=== PATIENT | female | born 1970 | race African-American/Black ===

== ENCOUNTER 2022-08-17 10:04 | Inpatient (IN) | payer SELFPAY ==
--- OUTSIDE RECORDS SUMMARY | 2022-08-17 10:06 | XMS REPORT | Continuity of Care Document ---
:1970 Author Organization [facility] t Address [address] [place] [address] Care Team Providers Name Role Phone Berry Kelley Attending Clinician Unavailable Physician, No Primary or Family Admitting Clinician Unavaila ble Payers Payer Name Policy Type Policy Number Effective Date Expiration Date S ource Problems This patient has no known problems. Allergies, Adverse Reactions, Alerts This patient has no known allergies or adverse reactions. Medications This patient has no known medications. Procedures This patient has no known procedures. Encounters Start End Encounter Admission Attending Care Care Encounter Source Date/Time Date/Time Type Type Clinicians Facility Department ID 2021-09-28 2021-09-28 Outpatient MIHIR Fuller RADI [id number] 09:38:00 09:38:00 Berry [facility] Results Test Description Test Time Test Comments Results Result [facility] e Comments - MRI UP JNT W/O 2021-09-28 CONT RT 11:52:00 [facility] 1970 Sex: F FAX: Berry Kelley MD [phone] Camps: PM St: REG Name: ANGELA LEHMAN : 1970 Age/S: 51/F [address] Unit #: [id number] Loc: [place] [address] Phys: Berry Kelley MD Acct: [id number] Dis Date: Status: REG CLI PHONE #: [phone] Exam Date: 09/28/2021 1100 FAX #: Reason: RIGHT SHOULDER PAIN EXAMS: CPT: [id number] MRI UP JNT W/[place] [id number] EXAM: MRI shoulder without contrast HISTORY: RIGHT SHOULDER PAIN COMPARISON: None available TECHNIQUE: Multiplanar multisequence MR imaging of the right shoulder was performed without the use of contrast. FINDINGS: BICEPS: The intra-articular portion of the biceps tendon is intact. LABRUM: Mild degenerative appearance of the superior labrum from the 11:00 to 1:00 position. ROTATOR CUFF TENDONS: Supraspinatus: Intact. Infraspinatus: Intact. Subscapularis: Intact. Teres minor: Intact. ACROMIO-OSSEOUS OUTLET: There is a type 1 acromion. Mild degenerative arthropathy of the AC joint is noted. Partially fused os acromiale is noted. No edema across the synchondrosis. MUSCLES: No signal abnormality in the muscles. Muscle bulk is preserved and symmetric. BONE: No fracture is identified. Subarticular cystic change identified at the glenoid and greater tuberosity. SOFT TISSUE: Within normal limits. No abnormality of the major neurovascular structures. IMPRESSION: Mild degenerative tear of the superior labrum, type II degenerative SLAP tear. No acute rotator cuff tear. Mild degenerative arthropathy of the AC joint. PAGE 1 Signed Report (CONTINUED) FAX: Berry Kelley MD [phone] Camps: PM St: REG Name: ANGELA LEHMAN : 1970 Age/S: 51/F [address] Unit #: [id number] Loc: [place] [address] Phys: Berry Kelley MD Acct: [id number] Dis Date: Status: REG CLI PHONE #: [phone] Exam Date: 09/28/2021 1100 FAX #: Reason: RIGHT SHOULDER PAIN EXAMS: CPT: [id number] [place] JNT W/[place] [id number] (Continued) Subcortical cystic change at the glenoid suggests overlying full-thickness chondral fissuring. Subcortical cystic change at the greater tuberosity suggests some degree of occult rotator cuff tendinopathy. at 1152 Reported and signed by: RAFAELA MAE M.D. CC: Berry Kelley MD Technologist: Nancy Anguiano, RT(R)() Transcribed Date/Time/By: 09/28/2021 ([id number]) :[email or web address] Orig Print D/T: S: 09/28/2021 (2924) PAGE 2 Signed Report
--- NOTE | 2022-08-17 10:26 | RAD REPORT ---
EXAM DESCRIPTION: RAD - Chest Single View - 08/17/2022 10:21 am CLINICAL HISTORY: preop COMPARISON: No comparisons FINDINGS: Lines: None. Lungs: No evidence of edema or pneumonia. Pleural: No significant pleural effusions or pneumothorax. Cardiac: The heart size is within normal limits. Mediastinum: Within normal limits. Bones: No acute fractures. Other: None IMPRESSION: No acute cardiopulmonary disease.
[2022-08-17] MEDS ORDERED: CLINDAMYCIN 600MG/D5W 50 ML IV ONE (10:36)
[2022-08-17] MEDS ORDERED: NA CHLORIDE 0.9% 1,000 ML ONE (10:36)
[2022-08-17] MEDS ORDERED: MORPHINE 2 MG/ML SYR ONE (10:36)
[2022-08-17 10:40] LABS: Hematocrit 38.1 % (36.0-45.0); Lymphocytes % 32.6 % (15.3-44.8); MCV 87.9 fL (80-100); RBC Red Blood Cell Count 4.33 M/uL (3.86-4.86)
[2022-08-17 10:58] LABS: Potassium 3.7 mmol/L (3.5-5.1); Troponin High Sensitivity 3.3 pg/mL (<58.9)
--- NOTE | 2022-08-17 12:31 | EDPHYS ---
Physician Documentation [facility] Name: Hoda Randhawa Age: 52 yrs Sex: Female : 1970 Arrival Date: 08/17/2022 Time: 10:05 Bed 7 Private MD: DELORIS RandhawaTim HPI: 08/17 10:18 This 52 yrs old Black Female presents to ER via Ambulatory with complaints of Boil - snw under arm. 10:18 The patient presents with an abscess of the right axilla. Description: The affected snw area is moderate sized, large, fluctuant, swollen. Onset: The symptoms/episode began/occurred suddenly, 4 day(s) ago, and became worse and became persistent. Possible cause(s): unknown. Associated signs and symptoms: The patient has no apparent associated signs or symptoms. Severity of symptoms: At their worst the symptoms were severe. The patient has not experienced similar symptoms in the past, but family has similar symptoms, son. The patient has not recently seen a physician. CERTIFIED FINANCIAL PLANNER: 10:11 LMP N/A - Post-menopause [facility] Historical: - Allergies: 10:11 No Known Allergies; [facility] - PMHx: 10:11 None; [facility] - PSHx: 10:11 None; [facility] - Immunization history:: Adult Immunizations up to date. - Social history:: Smoking status: Patient reports the use of cigarette tobacco products, smokes one pack cigarettes per day. ROS: 10:16 Constitutional: Negative for fever, chills, and weight loss, Eyes: Negative for injury, snw pain, redness, and discharge, ENT: Negative for injury, pain, and discharge, Neck: Negative for injury, pain, and swelling, Cardiovascular: Negative for chest pain, palpitations, and edema, Respiratory: Negative for shortness of breath, cough, wheezing, and pleuritic chest pain, Abdomen/GI: Negative for abdominal pain, nausea, vomiting, diarrhea, and constipation, Back: Negative for injury and pain, : Negative for injury, bleeding, discharge, and swelling, MS/Extremity: Negative for injury and deformity, Neuro: Negative for headache, weakness, numbness, tingling, and seizure, Psych: Negative for depression, anxiety, suicide ideation, homicidal ideation, and hallucinations. 10:16 Skin: Positive for "can't sleep, can't move, can't work with this thing under my arm" I didn't know what it was until my kids told me it is a hair bubble.. Exam: 10:15 Constitutional: This is a well developed, well nourished patient who is awake, alert, snw and in no acute distress. Head/Face: Normocephalic, atraumatic. Eyes: Pupils equal round and reactive to light, extra-ocular motions intact. Lids and lashes normal. Conjunctiva and sclera are non-icteric and not injected. Cornea within normal limits. Periorbital areas with no swelling, redness, or edema. ENT: Nares patent. No nasal discharge, no septal abnormalities noted. Tympanic membranes are normal and external auditory canals are clear. Oropharynx with no redness, swelling, or masses, exudates, or evidence of obstruction, uvula midline. Mucous membranes moist. Neck: Trachea midline, no thyromegaly or masses palpated, and no cervical lymphadenopathy. Supple, full range of motion without nuchal rigidity, or vertebral point tenderness. No Meningismus. Chest/axilla: Normal chest wall appearance and motion. Nontender with no deformity. No lesions are appreciated. Cardiovascular: Regular rate and rhythm with a normal S1 and S2. No gallops, murmurs, or rubs. Normal PMI, no JVD. No pulse deficits. Respiratory: Lungs have equal breath sounds bilaterally, clear to auscultation and percussion. No rales, rhonchi or wheezes noted. No increased work of breathing, no retractions or nasal flaring. Abdomen/GI: Soft, non-tender, with normal bowel sounds. No distension or tympany. No guarding or rebound. No evidence of tenderness throughout. Back: No spinal tenderness. No costovertebral tenderness. Full range of motion. MS/ Extremity: Pulses equal, no cyanosis. Neurovascular intact. Full, normal range of motion. Neuro: Awake and alert, GCS 15, oriented to person, place, time, and situation. Cranial nerves II-XII grossly intact. Motor strength 5/5 in all extremities. Sensory grossly intact. Cerebellar exam normal. Normal gait. Psych: Awake, alert, with orientation to person, place and time. Behavior, mood, and affect are within normal limits. 10:15 Skin: Appearance: normal except for affected area, abscess, that is moderate sized, that is large, of the right axilla, with fluctuance, with induration. Vital Signs: 10:08 BP 141 / 73; Pulse 80; Resp 16; Temp 98.4; Pulse Ox 99% ; Weight 74.84 kg; Height 5 ft. jh5 4 in. (162.56 cm); Pain 10/10; 10:51 BP 154 / 89; Pulse 74; Resp 15; Pulse Ox 97% ; Pain 10/10; jl7 13:53 BP 127 / 69; Pulse 80; Resp 19; Pulse Ox 95% ; jl7 16:08 BP 118 / 56; Pulse 84; Resp 15; Pulse Ox 97% ; Pain 7/10; jl7 10:08 Body Mass Index 28.32 (74.84 kg, 162.56 cm) jh5 MDM: 10:14 Patient medically screened. lisa 12:31 Differential diagnosis: abscess, cellulitis. Data reviewed: vital signs, nurses notes, snw lab test result(s), radiologic studies. Management of patient was discussed with the following: Hospitalist: Pt to be admitted to Hospitalist 2nd to no PCP assessment x 10 yrs. Accounting Analyst: Dr. Carlin, pt was seen in room #7 at 1200. I considered the following discharge prescriptions or medication management in the emergency department Medications were administered in the Emergency Department. See MAR. Historians other than the Patient: Daughter/Son: Son. Counseling: I had a detailed discussion with the patient and/or guardian regarding: the historical points, exam findings, and any diagnostic results supporting the discharge/admit diagnosis, the presence of at least one elevated blood pressure reading (>120/80) during this emergency department visit, lab results, radiology results, the need for further work-up and treatment in the hospital. Response to treatment: the patient's symptoms have mildly improved after treatment. 08/17 10:11 Order name: Basic Metabolic Panel snw 08/17 10:11 Order name: CBC with Diff snw 08/17 10:11 Order name: Troponin HS snw 08/17 10:46 Order name: CBC with Automated Diff; Complete Time: 11:03 EDMS 08/17 10:58 Order name: Basic Metabolic Panel; Complete Time: 11:03 EDMS 08/17 10:58 Order name: Troponin High Sensitivity; Complete Time: 11:03 EDMS 08/17 13:06 Order name: SARS RAPID em1 08/17 13:38 Order name: SARS-COV-2 Antigen Rapid; Complete Time: 13:38 EDMS 08/17 13:58 Order name: Protime (+INR); Complete Time: 13:58 EDMS 08/17 14:13 Order name: Phosphorus; Complete Time: 14:25 EDMS 08/17 14:13 Order name: Creatine Phosphokinase; Complete Time: 14:25 EDMS 08/17 14:13 Order name: Lipid Profile; Complete Time: 14:25 EDMS 08/17 14:13 Order name: T4 Free; Complete Time: 14:25 EDMS 08/17 14:13 Order name: Magnesium; Complete Time: 14:25 EDMS 08/17 10:11 Order name: XRAY Chest (1 view) snw 08/17 10:11 Order name: EKG; Complete Time: 10:12 w 08/17 10:11 Order name: Cardiac monitoring; Complete Time: 10:46 w 08/17 10:11 Order name: EKG - Nurse/Tech; Complete Time: 10:46 w 08/17 10:11 Order name: IV Saline Lock; Complete Time: 10:34 w 08/17 10:11 Order name: Labs collected and sent; Complete Time: 10:34 w 08/17 10:11 Order name: O2 Per Protocol; Complete Time: 10:18 w 08/17 10:11 Order name: O2 Sat Monitoring; Complete Time: 10:18 w 08/17 10:11 Order name: NPO; Complete Time: 10:26 w 08/17 10:27 Order name: RAD; Complete Time: 10:38 EDMS 08/17 14:13 Order name: Thyroid Stimulating Hormone; Complete Time: 14:25 EDMS 08/17 14:38 Order name: Hemoglobin A1c; Complete Time: 14:39 EDMS 08/17 11:04 Order name: Consult Surgery-Tristian Carlin MD (GENERAL SURGERY) snw EC:44 Rate is 77 beats/min. Rhythm is regular. QRS [place] is Normal. VT interval is normal. QRS snw interval is normal. QT interval is normal. Clinical impression: Normal ECG. Administered Medications: 10:42 Drug: morphine 2 mg Route: IVP; Infused Over: 4 mins; Site: left antecubital; jl7 11:00 Follow up: Response: No adverse reaction; Pain is unchanged, physician notified jl7 10:43 Drug: NS 0.9% 1000 ml Route: IV; Rate: 125 ml/hr; Site: left antecubital; jl7 13:49 Follow up: IV Status: Infusion continued upon admission jl7 10:46 Drug: Clindamycin 600 mg Route: IVPB; Infused Over: 30 mins; Site: left antecubital; jl7 11:15 Follow up: Response: No adverse reaction; IV Status: Completed infusion jl7 Disposition Summary: 08/17/22 12:31 Hospitalization Ordered Hospitalization Status: Observation snw Provider: Roma Bueno snw Location: Telemetry/MedSurg (observation) snw Condition: Stable snw Problem: new snw Symptoms: are unchanged snw Bed/Room Type: Standard snw Room Assignment: [facility](08/17/22 15:01) em1 Diagnosis - Cutaneous abscess of right axilla snw Forms: - Medication Reconciliation Form snw - SBAR form snw Signatures: Dispatcher [employer] EDTim Pruitt MD MD cha Waters, Shelly, CAP MACHINE OPERATOR-C CAP MACHINE OPERATOR-Ezekiel Tello em1 Guadalupe Charles RN RN jl7 Margarita Morton RN RN jh5 Corrections: (The following items were deleted from the chart) 15: 12:31 snw em1
--- NOTE | 2022-08-17 12:31 | ER ---
Nurse's Notes [facility] [place] [place] [facility] Name: Hoda Randhawa Age: 52 yrs Sex: Female : 1970 Arrival Date: 08/17/2022 Time: 10:05 Bed 7 Private MD: Diagnosis: Cutaneous abscess of right axilla Presentation: 08/17 10:08 Chief complaint: Patient states: boils under the arm since . Coronavirus [facility] screen: Vaccine status: Patient reports being unvaccinated. Client denies travel out of the [place] in the last 14 days. Ebola Screen: Patient negative for fever greater than or equal to 101.5 degrees Fahrenheit, and additional compatible Ebola Virus Disease symptoms Patient denies exposure to infectious person. Patient denies travel to an Ebola-affected area in the 21 days before illness onset. Initial Sepsis Screen: Does the patient meet any 2 criteria? No. Patient's initial sepsis screen is negative. Does the patient have a suspected source of infection? No. Patient's initial sepsis screen is negative. Risk Assessment: Do you want to hurt yourself or someone else? Patient reports no desire to harm self or others. Onset of symptoms was August 10, 2022. 10:08 Method Of Arrival: Ambulatory [facility] 10:08 Acuity: ANNABELLA 3 5 Triage Assessment: 10:11 General: Appears uncomfortable, well groomed, well developed, Behavior is calm, jh5 cooperative, appropriate for age. Pain: Complains of pain in under right arm. 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 - Social history:: Smoking status: Patient reports the use of cigarette tobacco products, smokes one pack cigarettes per day. Screenin:[facility] ED Fall Risk Assessment (Adult) History of falling in the last 3 months, jl7 including since admission No falls in past 3 months (0 pts) Confusion or Disorientation No (0 pts) Intoxicated or Sedated No (0 pts) Impaired Gait No (0 pts) Mobility Assist Device Used No (0 pt) Altered Elimination No (0 pt) Score/Fall Risk Level 0 - 2 = Low Risk Oriented to surroundings, Maintained a safe environment. Abuse screen: Denies threats or abuse. Denies injuries from another. Nutritional screening: No deficits noted. Tuberculosis screening: No symptoms or risk factors identified. Assessment: 10:30 General: Appears in no apparent distress. uncomfortable, Behavior is calm, cooperative, jl7 appropriate for age. Pain: Complains of pain in right axilla Pain currently is 10 out of 10 on a pain scale. Neuro: Level of Consciousness is awake, alert, obeys commands, Oriented to person, place, time, situation. Cardiovascular: Patient's skin is warm and dry. Respiratory: Airway is patent Respiratory effort is even, unlabored, Respiratory pattern is regular, symmetrical. Derm: Skin is pink, warm \T\ dry. Abscess located on right axilla is half dollar sized, has no drainage, is raised. 11:30 Reassessment: Patient appears in no apparent distress at this time. No changes from jl7 previously documented assessment. Patient and/or family updated on plan of care and expected duration. Pain level reassessed. Patient is alert, oriented x 3, equal unlabored respirations, skin warm/dry/pink. 12:45 Reassessment: Dr. Carlin told pt he will take pt to OR in the morning. jl7 14:00 Reassessment: Patient appears in no apparent distress at this time. No changes from jl7 previously documented assessment. Patient and/or family updated on plan of care and expected duration. Pain level reassessed. Patient is alert, oriented x 3, equal unlabored respirations, skin warm/dry/pink. 15:00 Reassessment: Patient appears in no apparent distress at this time. No changes from jl7 previously documented assessment. Patient and/or family updated on plan of care and expected duration. Pain level reassessed. Patient is alert, oriented x 3, equal unlabored respirations, skin warm/dry/pink. Vital Signs: 10:08 BP 141 / 73; Pulse 80; Resp 16; Temp 98.4; Pulse Ox 99% ; Weight 74.84 kg; Height 5 ft. jh5 4 in. (162.56 cm); Pain 10/10; 10:51 BP 154 / 89; Pulse 74; Resp 15; Pulse Ox 97% ; Pain 10/10; jl7 13:53 BP 127 / 69; Pulse 80; Resp 19; Pulse Ox 95% ; jl7 16:08 BP 118 / 56; Pulse 84; Resp 15; Pulse Ox 97% ; Pain 7/10; jl7 10:08 Body Mass Index 28.32 (74.84 kg, 162.56 cm) [facility] ED Course: 10:05 Patient arrived in ED. am2 10:05 Yelena Marquez FNP-C is [facility]. snw 10:05 Tim Randhawa MD is Attending Physician. snw 10:11 Triage completed. 5 10:11 Arm band placed on right wrist. 5 10:15 Guadalupe Charles RN is Primary Nurse. jl7 10:30 Patient has correct armband on for positive identification. Placed in gown. Bed in low jl7 position. Call light in reach. Side rails up X2. Client placed on continuous cardiac and pulse oximetry monitoring. NIBP monitoring applied. Warm blanket given. 10:33 Initial lab(s) drawn, by nh, sent to lab. Inserted saline lock: 20 gauge in left vg1 antecubital area, using aseptic technique. Blood collected. 10:54 Surgical consent Placed at bedside, awaiting surgeon visit. jl7 10:54 EKG done, by ED staff, reviewed by Yelena OSWALD. jl7 12:29 Roma Bueno MD is Hospitalizing Provider. snw 16:01 SARS RAPID Sent. jl7 16:36 No provider procedures requiring assistance completed. Patient admitted, IV remains in vg1 place. Administered Medications: 10:42 Drug: morphine 2 mg Route: IVP; Infused Over: 4 mins; Site: left antecubital; jl7 11:00 Follow up: Response: No adverse reaction; Pain is unchanged, physician notified jl7 10:43 Drug: NS 0.9% 1000 ml Route: IV; Rate: 125 ml/hr; Site: left antecubital; jl7 13:49 Follow up: IV Status: Infusion continued upon admission jl7 10:46 Drug: Clindamycin 600 mg Route: IVPB; Infused Over: 30 mins; Site: left antecubital; jl7 11:15 Follow up: Response: No adverse reaction; IV Status: Completed infusion jl7 Medication: 16:36 VIS not applicable for this client. vg1 Outcome: 12:31 Decision to Hospitalize by Provider. snw 16:36 Admitted to Med/surg accompanied by tech, via wheelchair, room 212, with chart. vg1 16:36 Condition: good 16:36 Instructed on the need for admit. 16:36 Patient left the ED. vg1 Signatures: Yelena Marquez, HIGHWAY PAINTER-C HIGHWAY PAINTER-Csnw Guadalupe Charles RN RN jl7 Paula Vazquez am2 Mary Mckeon, RN RN vg1 Margarita Morton RN RN jh5 Corrections: (The following items were deleted from the chart) 10:12 10:08 Pulse 80bpm; Resp 16bpm; Pulse Ox 99%; Temp 98.4F; 74.84 kg; Height 5 ft. 4 in.; jh5 BMI: 28.3; Pain 04/04; jh5
[2022-08-17] MEDS ORDERED: ACETAMINOPHEN 325 MG TABLET PO PRN (12:53)
[2022-08-17] MEDS ORDERED: ONDANSETRON 4 MG/2 ML VIAL IV PRN (12:56)
--- NOTE | 2022-08-17 13:01 | P.HP ---
Certification for Inpatient Patient admitted to: Observation With expected LOS: <2 Midnights Patient will require the following post-hospital care: None Practitioner: I am a practitioner with admitting privileges, knowledge of patient current condition, hospital course, and medical plan of care. Services: Services provided to patient in accordance with Admission requirements found in Title 42 Section 412.3 of the Code of Federal Regulations Patient History Date of Service: 08/17/22 Reason for admission: Right axilla abscess History of Present Illness: Patient is a 52-year-old female with a past medical history significant for nicotine dependence, alcohol abuse who presents with complaint of abscess under the right axilla onset 4 days ago. Patient initially noted an induration\boil under the right axilla. Patient reported that over time, she started noticing increased pain\swelling of right axilla abscess. Patient rated pain as 10/10 in severity and described pain as throbbing in quality. Patient reported associated signs and symptoms of generalized body pains. Patient denies any other signs or symptoms. Symptoms are aggravated or relieved by nothing. Patient decided to present to the hospital due to worsening symptoms. Allergies No Known Allergies Allergy (Verified 08/17/22 13:54) - Past Medical/Surgical History -: Nicotine dependence -: Alcohol abuse. Past Surgical History: Reviewed- Non-Contributory - Family History Family History: Reviewed- Non-Contributory - Social History Smoking Status: Current every day smoker Counseled patient to stop smoking for: less than 10 minutes Smoking therapy provided: Yes Patient receptive to therapy: Yes Alcohol use: Yes CD- Drugs: No Caffeine use: Yes Place of Residence: Home Review of Systems General: Other (Generalized body pains.) Eyes: Unremarkable ENT: Unremarkable Respiratory: Unremarkable Cardiovascular: Unremarkable Gastrointestinal: Unremarkable Genitourinary: Unremarkable Musculoskeletal: Unremarkable Integumentary: Other (Right axilla abscess) Neurological: Unremarkable Lymphatics: Unremarkable Physical Examination - Physical Exam General: Alert, In no apparent distress, Oriented x3, Cooperative HEENT: Atraumatic, PERRLA, Mucous membr. moist/pink, EOMI, Sclerae nonicteric Neck: Supple, 2+ carotid pulse no bruit, No LAD, Without JVD or thyroid abnormality Respiratory: Clear to auscultation bilaterally, Normal air movement Cardiovascular: No edema, Regular rate/rhythm, Normal S1 S2 Capillary refill: <2 Seconds Gastrointestinal: Normal bowel sounds, Non-distended, No tenderness Musculoskeletal: No clubbing, No swelling, No tenderness Integumentary: No rashes, No breakdown, Tenderness/swelling Neurological: Normal speech, Normal tone, Normal affect Lymphatics: No axilla or inguinal lymphadenopathy - Studies Laboratory Data (last 24 hrs) 08/17/22 10:30: WBC 12.30 H, Hgb 12.7, Hct 38.1, Plt Count 290 08/17/22 10:30: Sodium 140, Potassium 3.7, BUN 7, Creatinine 0.68, Glucose 109 H Assessment and Plan - Plan --Hidradenitis of right axilla. Patient started on antibiotics. Surgeon consulted. Plan surgery for a.m. We will keep patient n.p.o. after midnight. Will await further recommendation from surgeon. --Acute pain. We will manage pain with current pain medication regimen. --Nicotine dependence. Patient counseled on tobacco cessation. Refuses nicotine patch. --Alcohol abuse. Patient denies withdrawal symptoms when she does not drink. Alcohol withdrawal assessment protocol. --Leukocytosis. Likely secondary to hydradenitis. Blood cultures pending. Continue antibiotics. --- DVT prophylaxis with Lovenox subQ. Discharge Plan: Home Plan to discharge in: 48 Hours - Advance Directives Does patient have a Living Will: No Does patient have a Durable POA for Healthcare: No - Code Status/Comfort Care Code Status Assessed: Yes Physician Review: Patient Assessed, Agree with Above Assessment and Plan Critical Care: No
--- NOTE | 2022-08-17 13:02 | P.HP ---
Patient History Date of Service: 08/17/22 Physical Examination - Studies Laboratory Data (last 24 hrs) 08/17/22 10:30: WBC 12.30 H, Hgb 12.7, Hct 38.1, Plt Count 290 08/17/22 10:30: Sodium 140, Potassium 3.7, BUN 7, Creatinine 0.68, Glucose 109 H Assessment and Plan - Advance Directives Does patient have a Living Will: No Does patient have a Durable POA for Healthcare: No
[2022-08-17 13:38] LABS: SARS-CoV-2 Antigen Rapid Res Negative (Negative)
[2022-08-17 13:58] LABS: Protime INR 1.13
[2022-08-17] MEDS ORDERED: CLINDAMYCIN 600MG/D5W 50 ML IV SCH ×3 (14:00→18:00)
[2022-08-17] MEDS: HYDROCODONE/APAP 10/325 TAB PO PRN ×2 (14:00→20:00)
[2022-08-17] MEDS ORDERED: HYDROCODONE/APAP 10/325 TAB ONE (14:06)
[2022-08-17 14:13] LABS: Magnesium 1.9 mg/dL (1.6-2.4); Phosphorus 3.9 mg/dL (2.5-4.9); Thyroid Stimulating Hormone 1.04 uIU/mL (0.358-3.740)
[2022-08-17] MEDS: ENOXAPARIN 40 MG/0.4 ML SQ SCH (16:57)
[2022-08-17] MEDS: ASPIRIN 81 MG CHEWABLE TABLET PO SCH (16:57)
[2022-08-17 17:16] VITALS: BMI 28.3
[2022-08-17] MEDS ORDERED: INFLUENZA VACCINE (for 6+ mo) 0.5 ML DOSE IMVAC ONE (18:00)
[2022-08-17] MEDS: CLINDAMYCIN 600MG/D5W 50 ML IV SCH ×2 (18:19→23:25)
--- NOTE | 2022-08-17 18:26 | CON ---
Date of Consultation: 08/17/2022 Brief History Of Present Illness: The patient is a 52-year-old female with a past medical history of nicotine dependence and alcohol abuse, who presents with complaints of worsening pain and swelling i n the right axillary region occurring for approximately 6-7 days. She states that it came to ahead a nd is ultimately large, tender, red, no drainage, but significant pain associated with the area where it has now became tender and the pain is 10/10 in severity. She has not shaved in the area and noti kim this became out of seemingly nowhere and is not aware of any inciting events. Past Medical History: Significant for nicotine dependence, alcohol abuse. Allergies: NO KNOWN DRUG ALLERGIES. Medications: None. She states she has not seen a physician in approximately 7-10 years. Social History: She is a current everyday smoker. She drinks alcohol recreationally. Denies recrea tional drug use. Review of Systems: Ten-point review of systems other than HPI, she has body pains. Physical Examination: General: At the time of my examination; she is awake, alert, oriented. Psychiatric: Appropriate, conversive. HEENT: She is normocephalic. Sclerae anicteric. Mucous membranes are moist. Oropharynx is clear. Neck: Supple without JVD. Chest: Expansion and excursion. Cardiovascular: Regular rate and rhythm. Pulmonary: Clear to auscultation bilaterally. Abdomen: Soft, nontender. Extremities: No clubbing, cyanosis, or edema. Skin: Has a large right axillary abscess, which appears multifocal consistent with possible hidraden itis suppurativa. It is tender. There is fluctuance. It is approximately 3 cm in size with some st reaking and redness. There is no extension beyond the region. Laboratory Data: Reveals a white blood cell count of 12.3, hemoglobin is 12.7, hematocrit 38.1, plat elet count is 290. Her PT 12.4, INR 1.1. Sodium is 140, potassium 3.7, chloride 98, carbon dioxide 25, BUN 7, creatinine 0.6, glucose 109, calcium is 9.4. Troponin was 3.3. She had a chest x-ray per formed as well, which was officially read as no acute cardiopulmonary disease. Assessment And Plan: This is a 52-year-old female, who has had no contact with medical doctor, who w as admitted to the hospital with a right axillary abscess, possible hidradenitis suppurativa. 1.IV fluid hydration. 2.Antibiotic coverage. 3.I have explained risks, benefits, and alternatives of incision, drainage and debridement of right axillary abscess, possible hidradenitis suppurativa including, but not limited to bleeding, infection , damage to surrounding tissues, need for further operation and procedures, injury to nerves, dysfunc tion of arm, paresthesias, numbness in the arm. The patient agrees to proceed indicated. Thank you for this interesting consult. DARA/GOPAL Voice ID: [id number] Report ID: [id number]
[2022-08-17 23:57] LABS: Specific Gravity 1.022 (1.005-1.030); Urine Bilirubin NEGATIVE (Negative); Urine Blood Negative (Negative); Urine Clarity Clear (Clear); Urine Color Light-Yellow (Yellow); Urine Glucose NEGATIVE (Negative); Urine Protein NEGATIVE (Negative); Urine Urobilinogen Normal (Normal); Urine pH 5.5 (5.0-7.0)
[2022-08-18] MEDS ORDERED: FENTANYL CITR 100 MCG/2 ML IV ONE (02:52)
[2022-08-18 03:16] LABS: Absolute Lymphocytes (CBC) 4.9 K/uL (0.7-4.9); Hematocrit 34.9 % (36.0-45.0); Lymphocytes % 41.9 % (15.3-44.8); MCV 89.5 fL (80-100); MPV 9.4 fL (7.6-11.3)
[2022-08-18] MEDS: CLINDAMYCIN 600MG/D5W 50 ML IV SCH ×3 (06:19→17:08)
[2022-08-18] MEDS: ASPIRIN 81 MG CHEWABLE TABLET PO SCH (07:31)
[2022-08-18] MEDS: ENOXAPARIN 40 MG/0.4 ML SQ SCH (07:32)
[2022-08-18] MEDS ORDERED: BUPIVACAINE 0.5% PF 10 ML VIAL ONE (10:25)
[2022-08-18] MEDS ORDERED: Ringers Lactate 1,000 ML IV ONE (10:49)
[2022-08-18] MEDS ORDERED: FENTANYL CITR 100 MCG/2 ML ONE (11:14)
[2022-08-18] MEDS ORDERED: MIDAZOLAM HCL 2 MG/2 ML INJ ONE (11:14)
[2022-08-18] MEDS ORDERED: propofoL 200 MG/20 ML VIAL IV ONE (11:14)
[2022-08-18] MEDS ORDERED: LIDOCAINE 2% MPF 5 ML VIAL ONE (11:15)
[2022-08-18] MEDS ORDERED: ONDANSETRON 4 MG/2 ML VIAL ONE (11:16)
[2022-08-18] MEDS ORDERED: dexAMETHasone 10 MG/ML VIAL ONE (11:50)
--- NOTE | 2022-08-18 12:16 | P.OP ---
Preoperative diagnosis: RIGHT Axillary Hidradenitis Suppuritiva Postoperative diagnosis: RIGHT Axillary Hidradenitis Suppuritiva Primary procedure: Excisional debridement of RIGHT Axillary Hidradenitis Suppuritiva Anesthesia: GETA + Local Estimated blood loss: <10cc Specimen: cultures, debridement tissue Findings: RIGHT Axillary Hidradenitis Suppuritiva + abscess Complications: None Transferred to: Recovery Room Condition: Good
[2022-08-18] MEDS: HYDROMORPHONE HCL 2 MG/ML inj ONE ×4 (12:25→12:39)
[2022-08-18] MEDS ORDERED: KETOROLAC 30 MG/ML INJ ONE (12:38)
[2022-08-18] MEDS ORDERED: HYDROMORPHONE HCL 1 MG/ML INJ ONE (12:48)
[2022-08-18] MEDS: HYDROCODONE/APAP 10/325 TAB PO PRN ×2 (13:30→20:04)
--- NOTE | 2022-08-18 15:37 | OP ---
Date of Procedure: 08/18/2022 Surgeon: Tristian Cariln MD, Preoperative Diagnosis: Right axillary hidradenitis suppurativa. Postoperative Diagnosis: Right axillary hidradenitis suppurativa. Procedure Performed: Excisional debridement of right axilla hidradenitis suppurativa. Anesthesia: General endotracheal plus local with 0.25% Marcaine. Estimated Blood Loss: Less than 10 cc. Specimen: Cultures sent, both aerobic and anaerobic speciation and debridement tissue. Findings: Right axilla hidradenitis suppurativa with abscess extending for approximately 3.5 cm x 4. 5 cm down to the muscle including fascia. Complications: None. Disposition: The patient was transferred to the recovery room in good condition. Procedure In Detail: After informed consent was obtained, the patient was brought into the operating room, prepped and draped in the usual sterile fashion after adequate anesthesia was achieved. I mad e a curvilinear incision around an obvious area of axillary hidradenitis at the anterior axillary cre ase down through the subcutaneous tissues with a 15 blade and immediately encountered abscess materia l. I cultured it for both aerobic and speciation, circumferentially removed the debridement tissue a s described above for the measurements above down to the muscle and fascia. Part of the fascia was r emoved, but the muscle remained intact of the pectoralis major muscle. This tissue was all debrided until only good viable tissue remained. The area was copiously irrigated and hemostasis was achieved with minimal electrocautery. The wound was then packed with a sterile dressing and the patient had a dry dressing placed on top. The patient tolerated the procedure well without evidence of complicat ion and transferred to PACU in good condition. All counts were correct at the end of the case. TK/MODL Voice ID: [id number] Report ID: [id number]
--- NOTE | 2022-08-18 16:32 | EKG ---
Test Date: 2022-08-17 Test Time: 10:38:02 Wardrobe Specialist: NIRMAL MEASUREMENT RESULTS: Intervals: Rate: 77 TN: 144 QRSD: 86 QT: 374 QTc: 423 [place]: P: 3 TN: 144 QRS: 33 T: 44 INTERPRETIVE STATEMENTS: Normal sinus rhythm Normal ECG No previous ECG available for comparison Electronically Signed On 08-18-22 16:29:46 [employer]LL[employer] INSPECTOR by Vj Ferguson
[2022-08-18 21:06] VITALS: O2SAT 98
--- NOTE | 2022-08-19 | P.PN ---
Subjective Date of Service: 08/18/22 Subjective: No new changes, No C/O voiced, Improving Review of Systems 10-point ROS is otherwise unremarkable Physical Examination - Vital Signs Temperature: 98.7 F Blood Pressure: 115/53 Pulse: 89 Respirations: 18 Pulse Ox (%): 94 - Physical Exam General: Alert, In no apparent distress HEENT: Atraumatic, PERRLA, EOMI Neck: Supple, JVD not distended Respiratory: Clear to auscultation bilaterally, Normal air movement Cardiovascular: Regular rate/rhythm, Normal S1 S2 Gastrointestinal: Normal bowel sounds, No tenderness Musculoskeletal: No tenderness Integumentary: No rashes Neurological: Normal speech, Normal tone, Normal affect Lymphatics: No axilla or inguinal lymphadenopathy - Studies Laboratory Data (last 24 hrs) 08/18/22 02:54: Sodium 139, Potassium 4.0, BUN 11, Creatinine 0.62, Glucose 119 H 08/18/22 02:54: WBC 11.70 H, Hgb 11.4 L D, Hct 34.9 L, Plt Count 265 Medications List Reviewed: Yes Assessment & Plan - Problems (Diagnosis) (1) Hidradenitis axillaris Current Visit: Yes Status: Acute (2) Tobacco abuse Current Visit: Yes Status: Acute - Advance Directives Does patient have a Living Will: No Does patient have a Durable POA for Healthcare: No Physician Review: Patient Assessed, Agree with Above Assessment and Plan
[2022-08-19] MEDS: CLINDAMYCIN 600MG/D5W 50 ML IV SCH ×2 (00:33→06:38)
[2022-08-19] MEDS: HYDROCODONE/APAP 10/325 TAB PO PRN (01:30)
[2022-08-19] MEDS: ASPIRIN 81 MG CHEWABLE TABLET PO SCH (09:00)
[2022-08-19] MEDS: ENOXAPARIN 40 MG/0.4 ML SQ SCH (09:00)
[2022-08-19] MEDS ORDERED: COLLAGENASE 30 GM OINTMENT TOP SCH (09:00)
[2022-08-19 09:14] VITALS: BP 129/60; TEMP 96.8
== END 2022-08-19 11:21 | disposition home or self-care (01) | DRG 572 ==
LOC: ER 10:04 → ERHOLD 12:50 → 2ND 15:55 → OBSVTOIN 08-18 12:33
PROVIDERS: ADMIT Hospitalist; ATTEND Hospitalist
PROC: 0JBD0ZZ Excision of Right Upper Arm Subcutaneous Tissue and Fascia, Open Approach (ICD-10-PCS; principal; 2022-08-18 10:00)
DX: L73.2 Hidradenitis suppurativa (principal); L02.411 Cutaneous abscess of right axilla; F10.10 Alcohol abuse, uncomplicated; F17.210 Nicotine dependence, cigarettes, uncomplicated; Z71.6 Tobacco abuse counseling; Z20.822 Contact with and (suspected) exposure to COVID-19
CPT/HCPCS: 36415; 71045; 80048; 80061; 81003; 82550; 83036; 83735; 84100; 84439; 84443; 84484; 85025; 85610; 87040; 87070; 87075; 87077; 87186; 87205; 87811; 88304; 93005; 96361; 96365; 96375; 99285; G0378; J1100; J1170; J1650; J2001; J2250; J2270; J2405; J2704; J3010; J3590; J7030; J7120